=== PATIENT | male | born 1975 | race African-American/Black ===

== ENCOUNTER 2018-01-06 05:20 | Day surgery (SDC) | payer OTHER ==
[2018-01-06] MEDS ORDERED: NAPR220T66 PO (05:32)
[2018-01-06] MEDS ORDERED: LACTATED RINGERS 1,000 ML IV SCH (06:10)
[2018-01-06] MEDS ORDERED: FENTANYL CITRATE/PF 50MCG/ML 2ML VIAL ONE (07:19)
[2018-01-06] MEDS ORDERED: MIDAZOLAM HCL 2 MG/2 ML VIAL ONE (07:19)
[2018-01-06] MEDS ORDERED: PROPOFOL 200MG/20ML VIAL IV ONE ×3 (07:19→08:44)
[2018-01-06] MEDS ORDERED: CEFAZOLIN SODIUM 1000MG/VIAL ONE (07:20)
[2018-01-06] MEDS ORDERED: LIDOCAINE HCL/PF 1% 10 MG/ML 5ML VIAL ONE (07:20)
[2018-01-06] MEDS ORDERED: MEPERIDINE HCL/PF 25MG/ML CPJ ONE (09:22)
[2018-01-06] MEDS ORDERED: ONDANSETRON HCL 4MG/2ML VIAL IV ONE (09:30)
[2018-01-06] MEDS ORDERED: MEPERIDINE HCL/PF 25MG/ML CPJ IV PRN (09:30)
[2018-01-06] MEDS ORDERED: FENTANYL CITRATE/PF 50MCG/ML 2ML VIAL IV PRN (09:30)
== END 2018-01-06 12:25 | disposition home or self-care (01) ==
LOC: OR 05:20
PROVIDERS: ATTEND Urology
DX: N35.9 Urethral stricture, unspecified (principal); N13.9 Obstructive and reflux uropathy, unspecified; I10 Essential (primary) hypertension; K21.9 Gastro-esophageal reflux disease without esophagitis; F17.210 Nicotine dependence, cigarettes, uncomplicated; Z91.040 Latex allergy status; Z98.890 Other specified postprocedural states; Z79.899 Other long term (current) drug therapy
CPT/HCPCS: 52276; 93005; J0690; J2175; J2250; J3010; J3490; J7120; J2704